=== PATIENT | male | born 1960 | race Caucasian/White ===

== ENCOUNTER 2018-12-03 07:37 | Emergency (ER) | payer MEDICAID ==
[~2018-12-03] VITALS: Wt 74.0 kg
[2018-12-03 07:40] VITALS: BP 125/78; PULSE 86; RESP 17
--- NOTE | 2018-12-03 08:00 | ERD ---
ER Documentation Chief Complaint Chief Complaint BIB AMBULANCE FOR ITCHING/RASH ON RIGHT SIDE, UNKEMPT, HX OF SCABIES HPI 58-year-old male presents the emergency department by paramedics requesting dry closed. Patient is a somewhat tangential historian but provides no significant acute medical complaints. Patient states that he fell asleep outside. He is homeless. He states he got caught in the rain and woke up cold. He he denies feeling suicidal or homicidal, he denies any significant new rash, he denies any other acute complaints. ROS All systems reviewed and are negative except as per history of present illness. Physical Exam Vitals Vital Signs Date Temp Pulse Resp B/P (MAP) Pulse Ox O2 O2 Flow FiO2 Time Delivery Rate 12/03/18 98.0 86 17 125/78 98 07:40 (94) Physical Exam GENERAL: Disheveled, wet but in no acute distress HEENT: Pupils equal, round, and reactive to light. EOMI. There is no scleral icterus. NECK: C-spine is soft and supple, there is no meningismus. There is no cervical lymphadenopathy. LUNGS: Clear to auscultation bilaterally. There are no rales, wheezes or rhonchi. HEART: Regular rate and rhythm, no murmurs, clicks, rubs or gallops. ABDOMEN: Soft, non-tender, non-distended. There are bowel sounds in all four q uadrants. No rebound or guarding. EXTREMITIES: There is no peripheral cyanosis or edema. No focal swelling or erythema. NEURO: The patient moves all four extremities with 5/5 strength. Cranial nerves II - XII are intact. Normal gait. Alert and oriented SKIN: Patient is refusing to take his clothes off to evaluate the rash HEME/LYMPHATIC: There is no evidence of excessive bruising or lymphedema. PSYCHIATRIC: Patient is awake, alert, oriented. He is able to expose a care plan for himself. He is declining treatment. He is denying suicidal or homicidal ideation. Procedures/MDM Patient was taken to a room, seen and examined Medical decision makin-year-old homeless gentleman presents the emergency department essentially for social work lecturer support. At this time, he shows no evidence of significant decompensated medical illness. He is declining complete evaluation. Patient will be offered social work lecturer homeless interventions as per hospital policy but is otherwise without evidence of emergent medical condition that he is allowing us to evaluate or treat. Departure Diagnosis: Primary Impression: Homeless Additional Impression: Itching Condition: Stable Patient Instructions: Self-Care for Skin Rashes Additional Instructions: Please use the homeless resources you have been provided IRIS SHEPARD Dec 03, 2018 08:00
== END 2018-12-03 09:38 | disposition home or self-care (01) ==
LOC: E/R 07:37
DX: Z59.0 Homelessness (principal); L29.9 Pruritus, unspecified
CPT/HCPCS: 99282